=== PATIENT | male | born 1965 | race Caucasian/White ===

== ENCOUNTER 2016-12-27 09:19 | Emergency (ER) | payer BC ==
--- NOTE | 2016-12-27 09:38 | ED ---
General Adult HPI - General Chief complaint: Upper Respiratory Infection Stated complaint: congestion Time Seen by Provider: 12/27/16 09:32 Source: patient, RN notes reviewed Mode of arrival: ambulatory Limitations: no limitations - History of Present Illness Initial comments: Patient 51-year-old male who presents emergency room today with chief complaint of cough congestion over the last 2 weeks. Patient does admit that he's been on medications for sinus infection. States is currently on Augmentin that he's been taking for the past week. Patient states that he feels like it's getting down to his lungs he has had positive sputum production it's been clear and yellow. Patient does admit that he was on Levaquin approximately a month and half ago similar infection. If the fevers at home. He denies any other complaints at this time. Patient denies any recent shortness of breath, chest pain, back pain, abdominal pain, nausea or vomiting, numbness or tingling, dysuria or hematuria, constipation or diarrhea, headaches or visual changes, or any other complaints. - Related Data Home Medications Medication Instructions Recorded Confirmed Cetirizine HCl [Zyrtec] 10 mg PO DAILY 01/02/14 12/27/16 Azelastine HCl [Astepro] 1 spr EA NOSTRIL DAILY 08/01/14 12/27/16 Amoxicillin/Potassium Clav 1 tab PO Q12HR 12/27/16 12/27/16 [Augmentin 875-125 Tablet] Atorvastatin [Lipitor] 20 mg PO HS 12/27/16 12/27/16 Fish Oil/Dha/Epa [Fish Oil 1,200 1 cap PO DAILY 12/27/16 12/27/16 mg Fish Oil] Multivitamins, Thera [Multivitamin 1 tab PO DAILY 12/27/16 12/27/16 (formulary)] Omeprazole [PriLOSEC] 40 mg PO DAILY 12/27/16 12/27/16 guaiFENesin-DM 600/30MG [Mucinex 1 tab PO Q12HR PRN 12/27/16 12/27/16 Dm] Allergies Allergy/AdvReac Type Severity Reaction Status Date / Time No Known Allergies Allergy Verified 12/27/16 09:48 Review of Systems ROS Statement: Those systems with pertinent positive or pertinent negative responses have been documented in the HPI. ROS Other: All systems not noted in ROS Statement are negative. Past Medical History Past Medical History: No Reported History History of Any Multi-Drug Resistant Organisms: None Reported Past Surgical History: Orthopedic Surgery Past Psychological History: No Psychological Hx Reported Smoking Status: Never smoker Past Alcohol Use History: Rare Past Drug Use History: None Reported General Exam - General Exam Comments Initial Comments: General: The patient is awake and alert, in no distress, and does not appear acutely ill. Eye: Pupils are equal, round and reactive to light, extra-ocular movements are intact. No nystagmus. There is normal conjunctiva bilaterally. No signs of icterus. Ears, nose, mouth and throat: There are moist mucous membranes and no oral lesions. Neck: The neck is supple, there is no tenderness or JVD. Cardiovascular: There is a regular rate and rhythm. No murmur, rub or gallop is appreciated. Respiratory: Lungs are clear to auscultation, respirations are non-labored, breath sounds are equal. No wheezes, stridor, rales, or rhonchi. Gastrointestinal: Soft, non-distended, non-tender abdomen without masses or organomegaly noted. There is no rebound or guarding present. No CVA tenderness. Bowel sounds are unremarkable. Musculoskeletal: Normal ROM, no tenderness. Strength 5/5. Sensation intact. Pulses equal bilaterally 2+. Neurological: A&O x 3. CN II-XII intact, There are no obvious motor or sensory deficits. Coordination appears grossly intact. Speech is normal. Skin: Skin is warm and dry and no rashes or lesions are noted. Psychiatric: Cooperative, appropriate mood & affect, normal judgment. Limitations: no limitations Course Vital Signs 12/27/16 12/27/16 12/27/16 09:27 09:52 09:53 Temperature 99.8 F H 99.2 F Pulse Rate 87 76 Respiratory 18 16 16 Rate Blood Pressure 133/79 140/73 O2 Sat by Pulse 98 95 Oximetry Medical Decision Making - Medical Decision Making Chest x-ray reviewed and is negative for any acute abnormalities. Results were discussed with patient. At this time is advised to continue Augmentin for sinus infection and using [id number] medications and follow-up the family doctor. Disposition Clinical Impression: Sinusitis Disposition: HOME SELF-CARE Condition: Good Instructions: Sinusitis (ED) Additional Instructions: Please use medication as discussed. Please follow-up with family doctor in the next 2 days of symptoms have not improved. Please return to emergency room if the symptoms increase or worsen or for any other concerns. Referrals: Roby Bang MD [Primary Care Provider] - 1-2 days Time of Disposition: 10:20
--- NOTE | 2016-12-27 09:52 | XR ---
EXAMINATION TYPE: XR chest 2V DATE OF EXAM ORDERED: 12/27/2016 9:45 AM HISTORY: cough. REFERENCE: None. FINDINGS: The lungs are clear. Pleural spaces are clear. Heart size is normal. IMPRESSION: NORMAL CHEST.
[2016-12-27 09:54] VITALS: RESP 16
[2016-12-27 09:58] VITALS: BP 140/73; PULSE 76; TEMP 99.2
== END 2016-12-27 10:40 | disposition home or self-care (01) ==
LOC: EC 09:19
DX: J32.9 Chronic sinusitis, unspecified (principal); Z79.899 Other long term (current) drug therapy
CPT/HCPCS: 71020; 99283

== ENCOUNTER 2017-03-21 18:36 | Emergency (ER) | payer BC ==
[2017-03-21 18:51] VITALS: RESP 18
[2017-03-21] MEDS ORDERED: HYDROcodone/APAP 10-325MG 1 EACH TAB PO ONE (19:05)
--- NOTE | 2017-03-21 19:50 | ED ---
General Adult HPI - General Chief complaint: Eye Problems Stated complaint: Facial Injury, hit with softball Source: patient Mode of arrival: ambulatory Limitations: no limitations - History of Present Illness Initial comments: 52-year-old male presented for evaluation of facial trauma. Patient states that he was pitching a softball game and the Ball Was Hit Directly into His Face Just Inferior to the Left Orbit. He States Having Immediate Swelling to the Area with Discoloration and Pain. He Denies Loss of Consciousness or Anticoagulation. Vision Has Been Unaffected and He Denies Any Eye Pain. He States That He Has No Limitation in Eye Movements Either. No ataxia noted by the family as he walked off the field on his own without assistance. His daughter drove him to the ED. - Related Data Home Medications Medication Instructions Recorded Confirmed Cetirizine HCl [Zyrtec] 10 mg PO DAILY 01/02/14 12/27/16 Azelastine HCl [Astepro] 1 spr EA NOSTRIL DAILY 08/01/14 12/27/16 Amoxicillin/Potassium Clav 1 tab PO Q12HR 12/27/16 12/27/16 [Augmentin 875-125 Tablet] Atorvastatin [Lipitor] 20 mg PO HS 12/27/16 12/27/16 Fish Oil/Dha/Epa [Fish Oil 1,200 1 cap PO DAILY 12/27/16 12/27/16 mg Fish Oil] Multivitamins, Thera [Multivitamin 1 tab PO DAILY 12/27/16 12/27/16 (formulary)] Omeprazole [PriLOSEC] 40 mg PO DAILY 12/27/16 12/27/16 guaiFENesin-DM 600/30MG [Mucinex 1 tab PO Q12HR PRN 12/27/16 12/27/16 Dm] Allergies Allergy/AdvReac Type Severity Reaction Status Date / Time No Known Allergies Allergy Verified 12/27/16 09:48 Review of Systems ROS Statement: Those systems with pertinent positive or pertinent negative responses have been documented in the HPI. ROS Other: All systems not noted in ROS Statement are negative. Constitutional: Denies: fever, chills, weakness Eyes: Denies: eye pain, eye discharge, vision change ENT: Denies: ear pain, dental pain, epistaxis Respiratory: Denies: as per HPI, cough, dyspnea, wheezes, hemoptysis, stridor Cardiovascular: Denies: chest pain, palpitations Endocrine: Denies: fatigue, polydipsia, polyuria Gastrointestinal: Denies: abdominal pain, nausea, vomiting Genitourinary: Denies: urgency, dysuria Musculoskeletal: Reports: other (Swelling and discoloration inferior to the left eye). Denies: back pain, arthralgia Skin: Denies: rash, lesions Neurological: Denies: headache, weakness, numbness, paresthesias, confusion, abnormal gait, vertigo Psychiatric: Denies: anxiety, depression Hematological/Lymphatic: Denies: easy bleeding, easy bruising Past Medical History Past Medical History: No Reported History History of Any Multi-Drug Resistant Organisms: None Reported Past Surgical History: Orthopedic Surgery Past Psychological History: No Psychological Hx Reported Smoking Status: Never smoker Past Alcohol Use History: Rare Past Drug Use History: None Reported General Exam Limitations: no limitations General appearance: alert, in no apparent distress Head exam: Present: other (pain along the zygomatic arch with overlying swelling and discoloration. Left lower eyelid is also swollen and discolored however there is no tension noted when palpated.) Eye exam: Present: normal appearance, PERRL, EOMI, other (no decrease in extraocular movement when gazing upward). Absent: scleral icterus, conjunctival injection, periorbital swelling ENT exam: Present: normal exam, normal oropharynx, mucous membranes moist, TM's normal bilaterally, normal external ear exam Neck exam: Present: normal inspection. Absent: tenderness, meningismus, lymphadenopathy Respiratory exam: Present: normal lung sounds bilaterally. Absent: respiratory distress, wheezes, rales, rhonchi, stridor Cardiovascular Exam: Present: regular rate, normal rhythm, normal heart sounds. Absent: systolic murmur, diastolic murmur, rubs, gallop, clicks GI/Abdominal exam: Present: soft, normal bowel sounds. Absent: distended, tenderness, guarding, rebound, rigid Rectal exam: Present: deferred Extremities exam: Present: normal inspection, full ROM, normal capillary refill. Absent: tenderness, pedal edema, joint swelling, calf tenderness Back exam: Present: normal inspection Neurological exam: Present: alert, oriented X3, CN II-XII intact Psychiatric exam: Present: normal affect, normal mood Skin exam: Present: warm, dry, intact, normal color. Absent: rash Course Vital Signs 03/21/17 03/21/17 18:49 20:16 Temperature 97.4 F L 98.3 F Pulse Rate 70 63 Respiratory 18 18 Rate Blood Pressure 151/90 155/72 O2 Sat by Pulse 96 96 Oximetry Medical Decision Making - Medical Decision Making 52 yo male presenting for evaluation of facial trauma after being hit inferior to the left orbit with a softball. He denies loss of consciousness or anticoagulation use. There is no change in vision and he has no restriction of extra-ocular muscle movement. On physical examination he has significant swelling inferior to the left orbit with tenderness along the left zygomatic arch. There is also swelling to the left lower eyelid however it is easily retracted and extraocular muscles are intact without indication of impingement. Pupils are equal round and reactive to light and the remainder of his neuro exam is within normal limits. Patient has normal gait and station. He denies any neck pain. CT face and CT head are negative for acute fractures or internal hemorrhage. Patient was given Rutledge for pain control. He is informed of imaging results and that he would be discharged with instructions to follow-up with his primary care physician but to return if his symptoms should worsen or persist. The patient acknowledged an understanding of this information and agreed with this plan of care. Disposition Clinical Impression: Facial contusion, Closed head injury Disposition: HOME SELF-CARE Condition: Stable Instructions: Facial Contusion (ED) Referrals: Roby Bang MD [Primary Care Provider] - 1-2 days Time of Disposition: 20:21
--- NOTE | 2017-03-21 20:01 | CT ---
EXAMINATION TYPE: CT brain wo con DATE OF EXAM: 03/21/2017 COMPARISON: NONE HISTORY: Hit in left eye with softball today. CT DLP: 1036.90 mGycm Automated exposure control for dose reduction was used. FINDINGS: Ventricles have normal size. There is no mass effect nor midline shift. There is no sign of intracran ial hemorrhage. The calvarium is intact. There is left-sided periorbital soft tissue swelling. IMPRESSION: LEFT PERIORBITAL SOFT TISSUE SWELLING. NO FRACTURE SEEN. MINIMAL ETHMOID SINUSITIS NOTED. NO INTRACRA NIAL ABNORMALITY.
--- NOTE | 2017-03-21 20:03 | CT ---
EXAMINATION TYPE: CT facial bones wo con DATE OF EXAM: 03/21/2017 COMPARISON: NONE HISTORY: Hit in left eye with softball today. CT DLP: 581.40 mGycm Automated exposure control for dose reduction was used. TECHNIQUE: CT scan of the sinuses is performed without contrast, axial images are obtained, coronal r eformatted images are also reviewed. FINDINGS: The mandibular ring is intact. Maxilla is intact. Zygomatic arches appear normal. There is no evidence of blowout fracture. There is old osteotomy of the medial wall of both maxillary sinuses. There is some mucosal thickening in the ethmoid and sphenoid sinus. There is preseptal left periorbital soft tissue swelling. The nasal bone appears intact. IMPRESSION: Left-sided periorbital soft tissue swelling. No fracture seen. Mild ethmoid and sphenoid sinusitis. 3 x 1.5 cm subcutaneous hematoma anterior to the left maxilla.
[2017-03-21 20:17] VITALS: BP 155/72; PULSE 63; TEMP 98.3
== END 2017-03-21 20:16 | disposition home or self-care (01) ==
LOC: EC 18:36
DX: S00.12XA Contusion of left eyelid and periocular area, initial encounter (principal); S09.90XA Unspecified injury of head, initial encounter; Z79.899 Other long term (current) drug therapy; W21.07XA Struck by softball, initial encounter; Y93.64 Activity, baseball
CPT/HCPCS: 70450; 70486; 99283

== ENCOUNTER → 2017-08-27 | Outpatient (CLI) | payer BC ==
--- NOTE | 2017-08-27 12:10 | XR ---
EXAMINATION TYPE: XR chest 2V DATE OF EXAM: 08/27/2017 COMPARISON: 12/27/2016 INDICATION: Cough x2 weeks TECHNIQUE: Frontal and lateral views of the chest are obtained. FINDINGS: The heart size is normal. The pulmonary vasculature is normal. The lungs are clear. IMPRESSION: 1. No acute pulmonary process.
== END | disposition home or self-care (01) ==
LOC: RADXRMAIN 11:16
PROVIDERS: ATTEND Family Medicine
DX: R05 Cough (principal)
CPT/HCPCS: 71046

== ENCOUNTER → 2018-08-29 | Outpatient (CLI) | payer BC ==
[2018-08-29 10:04] LABS: Basophils % (A) 0 %; Eosinophils % (A) 0 %; HCT 46.6 % (39.0-53.0); HGB 14.4 gm/dL (13.0-17.5); Lymphocytes # (A) 1.4 k/uL (1.0-4.8); Lymphocytes % (A) 10 %; MCH 27.5 pg (25.0-35.0); MCV 88.6 fL (80.0-100.0); Mean Platelet Volume 6.8; Monocytes # (A) 0.7 k/uL (0-1.0); Monocytes % (A) 5 %; Neutrophils # (A) 11.1 k/uL (1.3-7.7); Neutrophils % (A) 83 %; Platelet Count 271 k/uL (150-450); RBC 5.26 m/uL (4.30-5.90); WBC 13.5 k/uL (3.8-10.6)
[2018-08-29 17:15] LABS: Albumin 4.7 g/dL (3.80-4.90); Albumin/Globulin Ratio 2.47 (1.20-2.10); Anion Gap 10.2 mmol/L (4.00-12.00); Calcium 9.6 mg/dL (8.7-10.3); Carbon Dioxide 29.8 mmol/L (21.6-31.8); Globulin 1.9 g/dL (1.6-3.3); LDL Cholesterol,Calculated 93.4 mg/dL (0.0-131.0); Potassium 4.5 mmol/L (3.5-5.5); Total Bilirubin 0.6 mg/dL (0.3-1.2); Total Protein 6.6 g/dL (6.2-8.2); VLDL Calculation 25.6 mg/dL (5.00-40.00)
== END | disposition home or self-care (01) ==
LOC: LABWHC1 09:21
PROVIDERS: ATTEND Physician Assistant
DX: E78.5 Hyperlipidemia, unspecified (principal)
CPT/HCPCS: 36415; 80053; 80061; 84439; 84443; 85025

== ENCOUNTER → 2020-11-07 | Outpatient (CLI) | payer BC ==
--- NOTE | 2020-11-07 11:51 | P.STRESS ---
- Stress Test Note Stress Test Results/Findings: Exam Performed: stress echo exercise Exam Date: 11/07/20 Reason for Exam: CP Height: 6 ft 1 in Weight: 205 kg Protocol: STRESS ECHO Stage: IV Duration of Exercise: 9.35 Resting Heart Rate: 70 Resting Blood Pressure: 145/81 Maximum Achieved Heart Rate: 151 Maximum Achieved Blood Pressure: 189/73 85% PMHR: 90 100% PMHR: 165 METS: 10.5 Technologist Comment: Stress Test Results/Findings: Patient underwent exercise stress echo with a Pool protocol treadmill stress test. Patient exercised into Stage 4 for a total of 9 minutes and 7 seconds reaching a total of 10.5 METS. Patient's maximum heart rate was 151 which represented 90 % age-predicted maximum heart rate. Stress EKG portion: At baseline patient's EKG showed normal sinus rhythm, normal axis, no significant ST or T wave abnormalities. At peak exercise, EKG showed nonspecific 0.[address] depressions in the inferior lateral leads she is nondiagnostic. Stress echo portion: 2-D echocardiogram was performed in the parasternal long, personal short, apical 2 and apical four-chamber views at rest, peak exercise and in recovery. At baseline, echocardiogram showed left ventricular ejection fraction 60 % without wall motion abnormalities. With peak exercise, echocardiogram shows improvement in left ventricular ejection fraction, increase contractility, decrease in left ventricular dimension without wall motion abnormalities consistent with a normal response to exercise. Conclusions: 1. Normal EKG and echo response to exercise without evidence of inducible ischemia. 2. Fair exercise capacity.
== END ==
LOC: RADNMMAIN 08:50
PROVIDERS: ATTEND Family Medicine
DX: R07.9 Chest pain, unspecified (principal)
CPT/HCPCS: 93351

== ENCOUNTER 2022-03-06 08:51 | Day surgery (SDC) | payer BC ==
[2022-03-04 12:17] VITALS: BMI 26.4
--- NOTE | 2022-03-06 07:38 | P.GSHP ---
History of Present Illness H&P Date: 03/06/22 CHIEF COMPLAINT: Colon screen HISTORY OF PRESENT ILLNESS: The patient is a 56-year-old male who presents for colon screen. Lower endoscopy was offered for further evaluation and management. PAST MEDICAL HISTORY: Please see list. PAST SURGICAL HISTORY: Please see list. MEDICATIONS: Please see list. ALLERGIES: Please see list. SOCIAL HISTORY: No illicit drug use FAMILY HISTORY: No reports of Crohn disease or ulcerative colitis. REVIEW OF ORGAN SYSTEMS: CONSTITUTIONAL: No reports of fevers or chills. PHYSICAL EXAM: VITAL SIGNS: Stable GENERAL: Well-developed pleasant in no acute distress. HEENT: No scleral icterus. Extraocular movements grossly intact. Moist buccal mucosa. NECK: Supple without lymphadenopathy. CHEST: Unlabored respirations. Equal bilateral excursions. CARDIOVASCULAR: Regular rate and rhythm. Distal 2+ pulses. ABDOMEN: Soft, nontender, nondistended. MUSCULOSKELETAL: No clubbing, cyanosis, or edema. ASSESSMENT: 1. Colon screen. PLAN: 1. Recommend proceeding with a lower endoscopy Past Medical History Past Medical History: GERD/Reflux, Hyperlipidemia History of Any Multi-Drug Resistant Organisms: None Reported Past Surgical History: Orthopedic Surgery Additional Past Surgical History / Comment(s): right heel and elbow spur removal, right rotator cuff rep., sleep apnea surgery, lasik eye surg. Past Anesthesia/Blood Transfusion Reactions: Postoperative Nausea & Vomiting (PONV) Past Psychological History: No Psychological Hx Reported Smoking Status: Never smoker Past Alcohol Use History: Rare Past Drug Use History: None Reported Medications and Allergies Home Medications Medication Instructions Recorded Confirmed Type Atorvastatin [Lipitor] 20 mg PO HS 12/27/16 03/04/22 History Fish Oil/Dha/Epa [Fish Oil 1,200 1 cap PO DAILY 12/27/16 03/04/22 History mg Fish Oil] Multivitamins, Thera [Multivitamin 1 tab PO DAILY 12/27/16 03/04/22 History (formulary)] Omeprazole [PriLOSEC] 40 mg PO DAILY 12/27/16 03/04/22 History Cholecalciferol [Vitamin D3 (25 25 mcg PO DAILY 03/04/22 03/04/22 History Mcg = 1000 Iu)] Allergies Allergy/AdvReac Type Severity Reaction Status Date / Time No Known Allergies Allergy Verified 03/04/22 12:10
[~2022-03-06 08:51] MED LIST: LACTATED RINGERS 1,000 ML IV SCH
[2022-03-06 09:28] VITALS: TEMP 97
[2022-03-06] MEDS ORDERED: PROPOFOL 10 MG/ML 20 ML VIAL IV ONE (09:55)
--- NOTE | 2022-03-06 10:19 | P.PCN ---
Date of Procedure: 03/06/22 Description of Procedure: PREOPERATIVE DIAGNOSIS: Colonoscopy screening. POSTOPERATIVE DIAGNOSIS: Colonoscopy screening. Sigmoid diverticulosis with pandiverticulosis OPERATION: Colonoscopy to the cecum, ileocecal valve and appendiceal orifice. SURGEON: Nery Saunders MD. ANESTHESIA: MAC. INDICATIONS: The patient is a 56-year-old male who presents for colonoscopy screening. Last colonoscopy over 5 years ago. Benefits and risks were described and informed consent was obtained. DESCRIPTION OF PROCEDURE: The patient had undergone Sutab prep. The patient had been brought into the operating room and laid in the left lateral decubitus position. After adequate intravenous sedation, the rectum was examined with 2% lidocaine jelly. No external hemorrhoids were encountered. The rectal tone was within normal limits. No lesions were palpated in the rectal vault. An Olympus colonoscope was advan nancy until the cecum, ileocecal valve and appendiceal orifice were clearly viewed. The prep was excellent. Moderate sigmoid diverticulosis with pandiverticulosis was encountered. No colonic polyps were found. No evidence of focal colitis was found. Retroflexion of the scope demonstrated grade 1 internal hemorrhoids without active bleeding or inflammation. The colon was desufflated. The patient had tolerated the procedure well. Withdrawal time was over 6 minutes. FINDINGS: Aronchick preparation quality scale 1 (1-5) Internal hemorrhoids, grade 1 No external prolapsed hemorrhoids. No arteriovenous malformations. No adenomatous polyps. No focal colitis. Sigmoid diverticulosis with pandiverticulosis Redundant sigmoid colon RECOMMENDATIONS: Lower endoscopy every in 10 years, 2031 Plan - Discharge Summary Discharge Rx Participant: No New Discharge Prescriptions: Continue Multivitamins, Thera [Multivitamin (formulary)] 1 tab PO DAILY Omeprazole [PriLOSEC] 40 mg PO DAILY Atorvastatin [Lipitor] 20 mg PO HS Fish Oil/Dha/Epa [Fish Oil 1,200 mg Fish Oil] 1 cap PO DAILY Cholecalciferol [Vitamin D3 (25 Mcg = 1000 Iu)] 25 mcg PO DAILY Discharge Medication List Atorvastatin [Lipitor] 20 mg PO HS 12/27/16 [History] Fish Oil/Dha/Epa [Fish Oil 1,200 mg Fish Oil] 1 cap PO DAILY 12/27/16 [History] Multivitamins, Thera [Multivitamin (formulary)] 1 tab PO DAILY 12/27/16 [History] Omeprazole [PriLOSEC] 40 mg PO DAILY 12/27/16 [History] Cholecalciferol [Vitamin D3 (25 Mcg = 1000 Iu)] 25 mcg PO DAILY 03/04/22 [History] Follow up Appointment(s)/Referral(s): Nery Saunders MD [STAFF PHYSICIAN] - As Needed Patient Instructions/Handouts: Diverticulosis Diet (GEN), Diverticulosis (GEN) Activity/Diet/Wound Care/Special Instructions: Repeat colonoscopy in 10 years2031 Discharge Disposition: HOME SELF-CARE
[2022-03-06 10:43] VITALS: BP 129/76; PULSE 73; RESP 18
== END 2022-03-06 11:08 | disposition home or self-care (01) ==
LOC: ORWHC2ENDO 08:51
PROVIDERS: ATTEND Surgery Plastic and Reconstructive Surgery
DX: Z12.11 Encounter for screening for malignant neoplasm of colon (principal); K57.30 Diverticulosis of large intestine without perforation or abscess without bleeding; K64.0 First degree hemorrhoids; K21.9 Gastro-esophageal reflux disease without esophagitis; E78.5 Hyperlipidemia, unspecified; Z79.899 Other long term (current) drug therapy
CPT/HCPCS: 45378; J2704